=== PATIENT | female | born 1960 | race Caucasian/White ===

== ENCOUNTER 2017-06-22 18:29 | Emergency (ER) | payer OTHER ==
[~2017-06-22] VITALS: Ht 162.6 cm; Wt 79.5 kg
[2017-06-22 18:37] VITALS: BP 149/80; PULSE 80; RESP 12; O2SAT 98
--- NOTE | 2017-06-22 18:42 | ED.REPORT ---
HPI-Trauma Minor / Fall Date of Service Jun 22, 2017 ED Provider: Leodan Hernandez MD A 56 year old female with a history of left rotator cuff surgery, left humerus fracture repair, asthma and GERD is brought to the ED via EMS due to left shoulder pain. The pt was running after a shopping cart this afternoon when she fell from ground level onto her left side. The pt hit her left shoulder and head , though she denies loss of consciousness or vomiting. She is now experiencing headache, nausea, left shoulder pain and back pain. Lives on [place], was flown to [facility] by fixed wing air ambulance. Nursing Notes Chief Complaint: Multiple Trauma/Fall Nursing Notes Reviewed: Yes Allergies: Coded Allergies: hydrocodone (Verified Allergy, Severe, dizzness/vomiting, 06/22/17) ciprofloxacin (Verified Adverse Reaction, Severe, involuntary muscle movement, 06/22/17) Scheduled Ondansetron ODT (Ondansetron ODT) 4 Mg Tab.rapdis 4 MG PO QID Scheduled PRN Oxycodone HCl/Acetaminophen 5-325 (Endocet 5-325) 1 Each Tablet 1 TABLET PO Q4H PRN PRN For Pain General Time Seen by MD: 18:39 Chief Complaint Other (Left shoulder pain) Hx Obtained From: Patient, EMS Arrived By: Ambulance Onset Occurred: 1 - 4 hours ago Symptom Duration: Since onset Recent Healthcare: No recent hospitalization Similar Sx Previous: No Past Medical History Past Medical History asthma GERD Past Surgical History left rotator cuff surgery left humerus fracture repair Reports: Cholecystectomy Smoking History Unknown if Ever Smoker Social History Alcohol Use: "Social" Other Social History: Good social support Ambulatory Status Independent Review of Systems Review of Systems Note: left shoulder pain Respiratory: Denies: Non-productive cough, Shortness of breath Musculoskeletal: Reports: Back pain, Denies: Neck pain Skin: Denies Rash Neurologic: Reports: Headache, Denies: Change LOC Complete sys rev & neg: except as marked. GI: Reports: Nausea, Denies: Abdominal pain, Vomiting Physical Exam Initial Vital Signs Vital Signs (First) Date Time Temp Pulse Resp B/P Pulse Ox O2 Delivery O2 Flow Rate FiO2 06/22/17 18:37 37.3 80 12 149/80 98 Room Air Initial VS: Reviewed General/Constitutional: Awake, Alert Neck: Atraumatic, Supple, Full range of motion Head / Eyes: Normocephalic, PERRL, EOMI left frontal scalp contusion ENT: Airway patent, Mucous membranes moist Respiratory / Chest: Atraumatic, Breath sounds NL, Breath sounds = bilat, No respiratory distress Cardiovascular: Heart rate NL, Regular rhythm, Heart sounds NL, No gallop, No murmurs, No rubs Abdomen: Soft, Non-tender Back: Full range of motion Upper Extremity / MS: Neurologic intact, Vascular intact abrasion to left shoulder tender over the clavicle, medially pulses and sensation intact distally motor function in hand intact Lower Extremity / Pelvis / MS: Atraumatic, Full range of motion Skin: Color NL, No rash, Warm, Dry Neurologic: Oriented X3, Speech NL, No motor deficits, No sensory deficits Psychiatric: Affect NL, Mood NL Interpretation & Diagnostics Interpretation & Diagnostics: Left Clavicle X-Ray: IMPRESSION: Mildly displaced distal clavicle fracture. Dictated by: Christina Campbell M.D. on 06/22/2017 at 19:42 Approved by: Christina Campbell M.D. on 06/22/2017 at 19:43 X-Ray Interpretation Xray Interpretation: IMPRESSION: No acute fracture. No osseous lesion. If clinical suspicion and/or symptoms persist, further assessment with repeat plainfilms, or advanced imaging (e.g., CT, MRI, or bone scan) may be helpful for further assessment. Dictated by: Christina Campbell M.D. on 06/22/2017 at 19:42 Approved by: Christina Campbell M.D. on 06/22/2017 at 19:42 X-Ray Ordered: Shoulder left Interpretation / Wet Read by: Interpret - Radiologist CT Head Interpretation IMPRESSION: No acute intracranial abnormality. Dictated by: Christina Campbell M.D. on 06/22/2017 at 20:31 Approved by: Christina Campbell M.D. on 06/22/2017 at 20:32 Interpretation / Wet Read by: Interpret - Radiologist Procedures Splint Application - Fx Mgt Procedure Performed by: Motor And Generator Brush Maker, Under my direct supervis Precise Anatomic Location: Shoulder sling, R shoulder Re-Eval/Medical Decision Source of Hx: EMS Re-Evaluation/Progress #1: Time of Eval: 20:13 Patient Status: Condition improved Re-Evaluation/Progress Note: Pt rechecked, who is comfortable. Radiology results and the need for CT scan are discussed. Re-Evaluation/Progress #2: Time of Eval: 21:37 Patient Status: Condition improved Re-Evaluation/Progress Note: Pt rechecked, who is comfortable. The diagnosis and plan for discharge are discussed. The pt understands and agrees with the plan. All questions are addressed at this time. Counseled Regarding: Diagnosis, Lab results, Need for follow-up, When/why to return to ED Discharge & Departure Departure Notes Pt will be staying in [facility] with family. 10 day supply of prozac and singulair provided. Advised she would need to contact prescriber for lorazepam which she also requested Impression: Primary Impression: Closed left clavicular fracture Encounter type: initial encounter Clavicle location: lateral end Fracture alignment: displaced Qualified Code: S42.032A - Displaced fracture of lateral end of left clavicle, initial encounter for closed fracture Additional Impression: Scalp contusion Disposition: Home Discharge Condition All VS Reviewed: Yes Condition: Stable Patient Instructions: Clavicle Fracture (ED) Additional Instructions: Emergency department evaluation today included interview, examination, CT scan of brain, x-rays of left shoulder and clavicle. There is a fracture of the lateral left clavicle. Left arm has been placed in a sling. Ice may be helpful for pain control, keep ice wrapped in a towel and remove after 15-20 minutes. This can be repeated several times a day. May use ibuprofen 400-6 mg every 6-8 hours as needed for pain. For more severe pain may use Percocet 1 every 4-6 hours. Ondansetron as needed for nausea and vomiting. A disc is been provided of relevant imaging. You have elected to arrange orthopedic follow-up in the [facility], call an orthopedist and make an appointment to be seen in 7-10 days. Bring the disc with you for this follow-up. Return emergency Department for severe headache, seizures, alert and active weakness and left hand. Scribe Attestation Portions of this note were transcribed by Clemencia Clement. I, Dr. Hernandez personally performed the history, physical exam and medical decision-making; I reviewed and confirmed the accuracy of the information in the transcribed note. Leodan Hernandez MD Jun 22, 2017 18:42 CLEMENCIA CLEMENT Jun 22, 2017 19:34
[2017-06-22] MEDS ORDERED: Ondansetron 2 mg/mL 2 mL Inj IVPUSH PRN (18:45)
[2017-06-22 18:55] VITALS: BP 160/79; PULSE 84; RESP 16; O2SAT 100
[2017-06-22] MEDS: HYDROmorphone 1 mg/mL Inj IVPUSH PRN ×2 (18:55→20:12)
--- NOTE | 2017-06-22 19:44 | DRSVH ---
PROCEDURE: X-RAY LEFT CLAVICLE, COMPLETE ([id number]) INDICATIONS: fall L shoulder pain TECHNIQUE: 2 views of the clavicle were acquired. COMPARISON: None. FINDINGS: Bones: There is a mildly displaced fracture of the distal clavicle. No suspicious bony lesions. Soft tissues: No suspicious soft tissue calcifications. IMPRESSION: Mildly displaced distal clavicle fracture. Dictated by: Christina Campbell M.D. on 06/22/2017 at 19:42 Approved by: Christina Campbell M.D. on 06/22/2017 at 19:43
--- NOTE | 2017-06-22 19:44 | DRSVH ---
PROCEDURE: X-RAY LEFT SHOULDER, MINIMUM TWO VIEWS ([id number]) INDICATIONS: fall left shoulder pain TECHNIQUE: 2 views of the shoulder were acquired. COMPARISON: [facility], CR, XR CLAVICLE COMP LT, 06/22/2017, 19:10. FINDINGS: Bones: No fractures or dislocations. No suspicious bony lesions. Visualized ribs appear intact. P eriarticular osteophyte formation at the acromioclavicular joint glenohumeral joints is present. Soft tissues: No suspicious soft tissue calcifications. IMPRESSION: No acute fracture. No osseous lesion. If clinical suspicion and/or symptoms persist, fur ther assessment with repeat plainfilms, or advanced imaging (e.g., CT, MRI, or bone scan) may be help ful for further assessment. Dictated by: Christina Campbell M.D. on 06/22/2017 at 19:42 Approved by: Christina Campbell M.D. on 06/22/2017 at 19:42
[2017-06-22 19:45] VITALS: BP 144/73; PULSE 85; RESP 20; O2SAT 98
[2017-06-22] MEDS ORDERED: _oxyCODONE/APAP 5-325 mg Tablet PO PRN (20:15)
--- NOTE | 2017-06-22 20:34 | DRSVH ---
PROCEDURE: CT BRAIN WITHOUT CONTRAST ([id number]) INDICATIONS: head injury, BETANCOURT TECHNIQUE: Noncontrast 4.5 mm thick angled axial sections acquired from the foramen magnum to the vertex, with c oronal reformats. COMPARISON: None. FINDINGS: Image quality: Excellent. CSF spaces: Basal cisterns are patent. No extra-axial fluid collections. The ventricles are symmet vidal in size and shape. Brain: No intracranial bleeds or masses. There is cerebral volume loss for age, with resultant vent ricular and sulcal prominence. There are periventricular and deep white matter chronic small vessel ischemic changes. There is intracranial internal carotid artery atherosclerosis. Skull and face: Calvarium and visualized facial bones appear intact, without suspicious lesions. Sinuses: Small bilateral maxillary sinus retention cysts are present. Visualized sinuses and mastoid s are otherwise clear. IMPRESSION: No acute intracranial abnormality. Dictated by: Christina Campbell M.D. on 06/22/2017 at 20:31 Approved by: Christina Campbell M.D. on 06/22/2017 at 20:32
[2017-06-22] MEDS ORDERED: _Ondansetron ODT 4 mg Tablet PO PRN (20:35)
[2017-06-22] MEDS ORDERED: ONDA4TAB12 PO (21:48)
[2017-06-22] MEDS ORDERED: OXYC-407 PO (21:49)
[2017-06-22] MEDS ORDERED: Promethazine Inj 12.5 MG in Dextrose 5%-Pha MIX 50 ML IV ONE (22:00)
[2017-06-22 23:09] VITALS: BP 161/80; PULSE 81; RESP 14; O2SAT 97
== END 2017-06-22 23:31 | disposition home or self-care (01) ==
LOC: SED 18:29 → EDBD 18:29 → SED 23:31
DX: S42.032A Displaced fracture of lateral end of left clavicle, initial encounter for closed fracture (principal); S00.03XA Contusion of scalp, initial encounter; M54.9 Dorsalgia, unspecified; R11.0 Nausea; W01.0XXA Fall on same level from slipping, tripping and stumbling without subsequent striking against object, initial encounter; Y93.02 Activity, running; Y99.8 Other external cause status; Y92.481 Parking lot as the place of occurrence of the external cause; K21.9 Gastro-esophageal reflux disease without esophagitis; J45.909 Unspecified asthma, uncomplicated; Z87.81 Personal history of (healed) traumatic fracture; Z90.49 Acquired absence of other specified parts of digestive tract; Z88.5 Allergy status to narcotic agent; Z88.1 Allergy status to other antibiotic agents
CPT/HCPCS: 23500; 70450; 73000; 73030; 96374; 96375; 96376; 99285; J1170; J2405; J2550; Q0169